=== PATIENT | female | born 1970 | race Caucasian/White ===

== ENCOUNTER 2024-11-02 09:02 | Outpatient (CLI) | payer BC, SELFPAY ==
--- OUTSIDE RECORDS SUMMARY | 2024-11-02 09:08 | XMS_ITS | CCD ---
Author Name Interface, [id number] lity Address [address] [place] [address] Organization [facility] Address [address] [place] [address] Care Team Providers Care Prosthetic Assistant Name Role Phone Tulio Schilling Unavailable Unavailabl e Care Plan Reason for Visit Encounters Functional Status Medications Problems Social History
--- OUTSIDE RECORDS SUMMARY | 2024-11-02 09:08 | XMS_ITS ---
Author Name Interface, [id number] lity Address [address] [place] [address] Organization [facility] Address [address] [place] [address] Care Team Providers Care Produce Manager Name Role Phone Tulio Schilling Allergies and Adverse Reactions Medication/Group Name Reaction Severity Date ondansetron Headache, Nausea 09/11/2022 Dilaudid 09/11/2022 Plan Date Type Value 09/10/2023 APPOINTMENT Lab 09/10/2023 APPOINTMENT INHIBIN A AND B, RTC 1YR F/U 09/10/2023 APPOINTMENT INHIBIN A AND B, RTC 1YR F/U 09/11/2022 APPOINTMENT LAB INHIBIN A&B, RTC 1YR F/U 09/11/2022 APPOINTMENT LAB INHIBIN A&B, RTC 1YR F/U 09/10/2023 LABORDER Inhibin B panel 09/10/2023 LABORDER Inhibin A panel Reason for Visit Lab Encounters Date Name 09/11/2022 Primary malignant ne oplasm of ovary (disorder) Diagnostic Results Date Type Test Units Lower Limit Upper Limit Result Flag Comments Status Ordered By Specimen Source Lab Address 09/11 Inhib in B panel Inhib in B pg/mL <10 REFERENCE RANGE for Inhibin B:------- --------- --------- -----Age: Male: Female:5 - 9.9 years 21 - 166 pg/mL < or = 18 pg/mL10 - 13.9 years 41 - 328 pg/mL < or = 86 pg/mL14 - 17.9 years 54 - 295 pg/mL < or = 123 pg/mL>= 18 years 47 - 308 pg/mLFema le: Pre-menop ausal <153 pg/mLPost -menopaus al <10 pg/mLValu es obtained from different assay methods cannot beused interchan geably. Inhibin B levels, regardles s ofvalue, should not be interpret ed as absolute evidenceo f the presence or absence of disease.T his test was developed and its analytica l performan cecharact eristics have been determine d by [facility] / [facility]. It has not been cleared or approved by theA. This assay has been validated pursuant to the CLIAregul ations and is used for clinical purposes. [employer], [address] [place] [address] [place] [id number] 0 09/11 Inhib in A panel Inhib in A, ultra sensi tive pg/mL 1 Reference Ranges for Inhibin A:Females Premenopa usal: <98.0 pg/mLPost menopausa l: <2.1 pg/mLMale s <2.0 pg/mLThis test was performed using the [employer] Inhibin-A method that has been cleared bythe FDA strictly for in vitro use as an aid in the diagnosis and monitorin g of various hormonal reproduct raeann disorders .The Inhibin-A test should not be used as a diagnosti cprocedur e for granulosa cell tumors or hydatidif orm moleswith out confirmat ion of the diagnosis by another establish edproduct or procedure . Values obtained with different assaymeth ods or kits cannot be used interchan geably. [facility] [employer] [facility], [address] [place] [address] [place] [id number] Medications Date Name Route Dose Frequency Instructions Start Date End Date Status Chlorthalidone Oral active Trazodone Oral 1/2 nightly active 2022 estradiol 2 MG Oral Tablet 023 active 2021 estradiol 2 MG Oral Tablet 022 active 2020 estradiol 2 MG Oral Tablet 021 active 2018 Multivitamins with Iron-Mineral Oral Liquid PO 15.0 ML daily 019 active 2018 Ibuprofen Oral PO 1.0 TABLET (S) Q8H PRN pain 019 active 2010 1 ML lorazepam 2 MG/ML Injection intravenous 1.0 mg As Directed 011 2010 on hold 2010 1 ML lorazepam 2 MG/ML Injection intravenous 1.0 mg As Directed 011 2010 on hold 2010 1 ML lorazepam 2 MG/ML Injection intravenous 1.0 mg As Directed 011 2010 on hold 2010 1 ML lorazepam 2 MG/ML Injection intravenous 1.0 mg As Directed 011 2010 on hold 2010 1 ML lorazepam 2 MG/ML Injection intravenous 1.0 mg As Directed 011 2010 on hold 2010 1 ML lorazepam 2 MG/ML Injection intravenous 1.0 mg As Directed 011 2010 on hold Problems Diagnosis Status Date of Diagnosi s Tobacco user (finding) Active Degeneration of intervertebral disc (disorder) A ctive Cyst of breast (disorder) Active Primary malignant neoplasm of ovary (disorder) A ctive 09/18/2010 Pain of breast (finding) Active Vital Signs Date Type Value 09/11/2022 Body Temperature 97.60 09/11/2022 Heart Beat 74.00 09/11/2022 Respiratory Rate 14.00 09/11/2022 Oxygen Saturation 97.00 09/11/2022 BSA 1.65 09/11/2022 Pain Scale 0.00 09/11/2022 Weight 140.00 09/11/2022 Height 62.50 09/11/2022 BMI 25.20 09/11/2022 Intravascular Systolic 128 09/11/2022 Intravascular Diastolic 86 Notes Section * LEAD RECREATION ASSISTANT Onc Follow Up Note Patient Name:Temi LEE :Temi 1970 Date of Visit:Â 09/11/2022 Referring Provider:Temi Membreno Attending:Temi Schilling (Gynecological/Oncology) Chief Complaint: Follow-up for ovarian cancer History of Present Illness: Rosemary returns to clinic today for follow-up for 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 Â The patient was last seen in our office on 08/29/2021.Â Â Patient has been doing well since her last visit.Â Â She reports havingÂ received definitive therapy for hepatitis C is quite elated. Â She has not had any symptoms associated with her hep C. Â She denies any right upper quadrant abdominal pain or jaundice.Â Rosemary denies any abdominal or pelvic pain. She denies vaginal dryness or dyspareunia. Â Patient has no abdominal bloating, nausea or vomiting. No urinary symptoms. She reports normal appetite. No unexpected change in weight. No other signs or symptoms consistent with recurrence of her ovarian cancer. Past Medical History: * Stage IC granulosa-cell tumor - 09/18/2010.* Adjuvant chemotherapy with carboplatin and Taxol - Last cycle received on 02/27/2011. * Vulvar herpes. Past Surgical History: * Exploratory laparotomy with total hysterectomy, bilateral salpingo oophorectomy, omentectomy and paraaortic and bilateral pelvic lymph node dissection on 09/18/2010. * Cold knife cone - 1990. * Port a cath placement Past Obstetrical and Gynecologic History: No history of sexually transmitted disease. Â Abnormal Pap smears in 1989 (cold knife cone) and 1994 (cryotherapy). Â Last Pap 04/2010 - negative per pt. Patient has had 5 spontaneous vaginal deliveries at term. Â Never had a mammogram or colonoscopy. Family History: Noncontributory.Â Social History: The patient denies any alcohol, tobacco or drug use. Quit smoking in May 2010. 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 Â She is currently working at [employer]. Â She lives withher boyfriend and 2 grandchildren. Â She has 5 children. Review of Systems: 14-system review with patient is unremarkable, except for that mentioned in the History of Present Illness.Â ... Medications: * Multivitamins with Iron-Mineral Oral Liquid Liquid (Ml) 15 ML PO daily * Chlorthalidone Oral 25 mg tablet * Estradiol 2 mg tablet TAKE 1 TABLET BY MOUTH DAILY * Ibuprofen Oral 400 mg tablet 1 TABLET(S) PO Q8H PRN pain * Trazodone Oral 50 mg tablet 1/2 nightly Allergies: * Dilaudid * ondansetron Vital Signs: Blood pressure: 128/86, L arm, Regular, Pulse: 74, Temperature: 97.6 F, Respirations: 14, O2 sat: 97%, At Rest, Room Air, Pain Scale: 0, Height: 62.5 in, Weight: 140 lb, BSA: 1.65, BMI: 25.2 kg/m2 Physical Exam: Constitutional: The patient appears comfortable, in no acute distress. ECOG 0 HEENT: Normocephalic Eyes: Sclerae anicteric Respiratory: No evidence of cough, normal respiratory effort Cardiovascular: No evidence of peripheral edema Musculoskeletal: Gait is normal Skin: No rashes, petechiae or jaundice Neurologic: No focal deficits Psychiatric: Alert and oriented x3 Gynecologic Exam: External genitalia: No lesions appreciated. Urethral meatus: No lesions appreciated, no prolapse. Bladder: No masses, nontender. Vagina: No discharge, nontender. Cervix:Â Surgically absent Uterus: Surgically absent. Adnexa: No masses, nontender. Perineum/anus: No lesions. Laboratory Data: CBC LabResults 08/29/2021 10/12/2018 04/15/2018 04/09/2018 8 10/21/2016 CBC CMP LabResults 08/29/2021 10/12/2018 04/15/2018 04/09/2018 8 10/21/2016 Chemistries Creatinine mg/dL 0.7 GFR non-, estimated mL/min/1.73m2 >60 Pathology: 09/18/2010 Surgical pathology: Â Left ovary - Granulosa cell tumor, measures 9 cm with rupture and hemorrhage. Increased nuclear atypia and mitotic activity. Left tube- No pathology. Uterus and cervix - No pathology. Myometrium - Adenomyosis. Right ovary - Stromal hyperplasia. No evidence of malignancy. Right tube - Few paratubal cysts ranging in size up to 1.2 cm. Omentum - No evidence of malignancy. Left paraaortic dissection - (0/5) negative. Left Pelvic lnd (0/17) - Negative. Imagin04/13/2018-CT of abdomen pelvis-there is no indications of metastatic disease of the abdomen or pelvis. Â Patient does have small 2-3 mm calculi in the lower pole calyces of the left kidney. Â There is no retroperitoneal adenopathy. Â The bladder has symmetric contour. Â No mention of hydronephrosis or hydroureters.Â 10/17/2011 CT abdomen/pelvis - No new disease in abdomen or pelvis. Redemonstrated tiny fluid collection adjacent to the distal left external iliac vessels, possibly lymphocele. 04/10/2011 CT chest, abdomen and pelvis - No new disease. Small cluster of nonspecific 0.5 cm and smaller nodes in the right lateral small bowel mesentery. Slightly smaller fluid collection in the distal left external iliac chain. 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 No new or recurrent disease in the abdomen or pelvis. Thrombosed left parametrial vein. 09/18/2010 CT abdomen and pelvis - Large left adnexal mass measuring 11.0 cm with moderate degree of hemoperitoneum. Assessment & Plan: * Stage IC granulosa cell tumor - No evidence of recurrent disease by today's exam. Â Â Tumor markerspending. Recommend follow up examination and repeat tumor markers in 1 year. The patient will call our office with any new symptoms or concerns.Â * Positive Hepatitis C antibodies -patient has received definitive therapy.Â Â Plan for Pain: (X ) No pain reported ( ) Use of Opioids ( ) Non-opioid analgesics or techniques ( ) Non-pharmacologic interventions (relaxation techniques, use of heat/cold) ( ) Driving prohibitions discussed ( ) Opioid agreement signed ( ) PDMP reviewed ( ) Patient and/or family education ( ) Psychological Support ( ) Radiation treatment ( ) Reassessment of pain at an appropriate time interval ( ) Referral to a pain clinic ( ) Referral to other provider ( ) Urine drug screen order provided and discussed ( ) Other Tulio Schilling MD cc:Â Lakeisha Boyce MD (TV[facility]) Magnus Pacheco MD (LM) Electronically signed by Tulio Schilling MD 09/11/2022 14:53 PDT
--- OUTSIDE RECORDS SUMMARY | 2024-11-02 09:08 | XMS_ITS | Patient Health Record ---
Author Organization [facility] Address [address] [place] [address] Care Team Providers Care Aircraft Cabin Cleaner Name Role Phone Yobany Woods Primary Care Provider [phone] Shruthi Walker [phone] Allergies No Known Allergies Reason For Referral Reason TINNITUS EVALUATION. [facility] MELIS[facility] Diagnosis 1 Tinnitus of both ear s (H93.13) Referral Organization [facility] Referring Provider First Name Yobany Referring Provider Last Name Peggy Referring Provider Speciality Internal M edicine Referred Provider Specialty Audiologists General Notes Referral sent to [facility]. Letter to patient. Clinical Notes [facility], [facility], [place] [address], ph. [phone], fax: [phone] Referral Priority Routine Medications Medication SIG (Take, Route, Fr equency, Duration) Notes Start Date End Date Status Estradiol 2 MG 1 tablet Orally Once a day for 90 days 06/06/2024 Active traZODone HCl 50 MG 1 tablet at bedtime as needed Orally Once a day Active Social History Tobacco Use: Social History Observation Description Date Details (start date - stop date) Current Smoker NA - NA Tobacco Control (Standard) Question Answer Notes Tobacco use: Current every day smoker Additional Findings: Tobacco user e-cigarette Problems Problem Type SNOMED Code ICD Code Onset Dates Problem Status W/U Status Risk Notes Problem Hypertension (86025807) Hypertension (I10) Active confirmed Problem Insomnia (612105715) Insomnia (G47.00) Active confirmed Problem Bilateral tinnitus (3793136831139) Tinnitus of both ears (H93.13) Active confirmed Problem History of malignant neoplasm of ovary (337543419) History of ovarian cancer (Z85.43) Active confirmed Vital Signs Heart Rate 71 /min 06/03/2024 Respiratory Rate 16 /min 06/03/2024 Blood pressure diastolic 98 mm Hg 06/03/2024 Oximetry 98 % 06/03/2024 Height 62 in 06/03/2024 Blood pressure systolic 132 mm Hg 06/03/2024 Weight 143 lbs 06/03/2024 BMI 26.15 kg/m2 06/03/2024 Encounters Encounter Location Date Provider Diagnosis [place] [address] [place] [address] 06/03/2024 Yobany Woods Tinnitus of both ears H93.[address] [place] [address] 12/30/2023 Shruthi Walker Insomnia G47.00 [place] [address] [facility] [place] [address] 05/27/2024 Yobany Woods [address] [place] [address] 06/06/2024 Yobany Woods [address] [place] [address] 06/24/2024 Yobany Woods [place] [address] [place] [address] 12/31/2023 Yobany Woods Insomnia G47.00 Assessments Encounter Date Diagnosis (ICD Code) Assessment Notes Treatment Notes Treatment Clinical Notes Section Notes 06/03/2024 Tinnitus of both ears (ICD-10 - H93.13) DISCUSSED LIKELY DUE TO AGE RELATED HEARING LOSS. AVOID LOUD NOISES. USE WHITE NOISE TO MASK. DISCUSS OTHER OPTIONS AFTER AUDIOLOGY EVALUATION. 12/30/2023 Insomnia (ICD-10 - G47.00) 12/31/2023 Insomnia (ICD-10 - G47.00) Plan Of Treatment No Information Insurance Providers Payer Name Payer Address Payer Phone Subscriber Number Group Number Insured Name Patient Relationship to Insured Coverage Start Date Coverage End Date [facility] [address] [place] [address] [phone] [id number] Rosemary Sena Self - patient is the insured 4 Medical (General) History Surgical History Surgery Date(Month/Year) hysterectomy
--- OUTSIDE RECORDS SUMMARY | 2024-11-02 09:08 | XMS_ITS | Continuity of Care Document ---
Author Organization [facility] Address [address] [facility] [address] [place] [address] Phone Care Team Providers Care Technical Sme Name Role Phone Cristobal Martin MD Unavailable Unavailable Allergies, Adverse Reactions, Alerts Substance Reaction Status Criticality HYDROMORPHONE HCL Active No Informa tion tramadol Active No Information Medications Medication Instructions Dosage Effective Dates (start - stop) Status Comments estradiol 1 mg tablet take 1 tablet by oral route every day 1 MG - Active hydrocodone 5 mg-acetaminophen 325 mg tablet take 1 tablet by oral route every 6 hours as needed for pain 1.00 tablet - Active gabapentin 300 mg capsule take 1 capsule by oral route 3 times every day 300 MG - Active Zyrtec 10 mg capsule - Activ e methocarbamol 750 mg tablet take 1 tablet by oral route every 4 hours 750 MG - Active ibuprofen 200 mg capsule take 1 capsule by oral route every 6 hours as needed 200 MG - Active Procedures Procedure Date Office/outpatient visit,est, mod 2014 Office/outpatient visit,new, Low 2014 Advance Directives Directive Yes / No Effective Date File Name No Information Encounters Encounter Description Practice Location Reason(s) For Visit Diagnoses Date Provider Providers Copied on Encounter [facility], [address], [place], [place], [id number], [place] tel:[phone] [facility] Cervical radiculopathy Aug- 6 Veronica Jain. [address], [place], [place], [id number] , [place]. tel:[phone] Office/outpa tient visit,[facility], [facility], [address], [place], [place], [id number], [place] tel:[phone] [facility] [place] neck pain (chief complaint) Cervical radiculopathy Sep-2 8-201 5 Zoe Wang. [address], [place], [place], [id number] , [place]. [phone] Referring Provider: Rojas ZELAYA, [address], [place], [address] . tel:[phone] Office/outpa tient visit,[facility], [facility], [address], [place], [place], [address], [place] tel:[phone] [facility] [place] neck pain (chief complaint) CervicalgiaCervica l radiculopathy October-0 5-201 5 Walker [place]. [address], [place], [place], [id number] , [place]. tel:[phone] Referring Provider: Candy Aguilera, [address], [place], [address]. tel:[phone] Family History Family Member Type Diagnosis Age At Onset Father Problem (finding) Unknown Mother Problem (finding) Alive and well Problem (finding) Family history of Cance r, unknown Payers Payer name Insurance type Covered green party ID Authoriza tion(s) No Information Social History Type Description Quantity Date Captured Comments Alcohol Use Details No Caffeine Use Details Unknown Tobacco Use Status No Information Smoking Status No Information Sex Female Chief Complaint And Reason For Visit No Information Reason For Referral Reason For Referral No Information Plan Of Treatment Date Type Action Status Future Order: Lab Order CBC w/di ff ([id number]), Ordered on: Ordered Future Order: Lab Order PT/INR ( [id number]), Ordered on: Ordered Future Order: Lab Order PTT ([id number]), O rdered on: Ordered Future Order: Lab Order BMP ([id number]), O rdered on: Ordered Future Order: Lab Order T&S: ABo RH Type (part 2) ([id number]), Ordered on: Ordered Future Order: Lab Order T&S:Anti body Screen (part 1) ([id number]), Ordered on: Ordered History Of Present Illness Encounter Date Complaint History Of Prese nt Illness neck pain CHIEF COMPLAINT: neck pain, left arm pain AREA TO EXAMINE: neck HOW INJURY OCCURED: unknownCURRENT WORK STATUS: yes DATE LAST WORKED: TREATED IN ER: no Studies Reviewed Ext MRI Cervica l Spine performed on 08/14/2014. 1. Disc osteophytes at C4-5 and C6-7 are asymmetric to the left resulting in severe left foraminal narrowing at both levels with concern for impingement of the left C6 and C7 nerve roots. There is also right foraminal narrowing at C5-6 which could impinge the right C6 nerve root.2. 2. No central canal stenosis. neck pain The symptoms beg an 1 year ago. The symptoms are reported as being moderate. The symptoms occur daily. The location is neck and right shoulder. Hilton Haley is a pleasant 44-year-old woman who is here for further evaluation of a 1.5 year history of pain down the left lateral side of the neck and into the trapezius, left posterior arm, and left hand. She denies any pains to the right. She describes a warm sensation to the neck, as well as some numbness and parethesisas into the LUE at times. No known trauma or precipitating events. The pain has been keeping her up at night. She does not sleep in any particular position. She has tried physical therapy with Lakeisha Rios, and has a few appointments left. She has found some relief with manual cervical traction. She also has a history of migrainous headaches which seems to be interrelated to the neck issues. She also participates in a P90X program, which seems to be tolerable. She tried care consultant for one visit, which was very painful afterward, but then provided some mild relief a couple of days afterward. Studies Reviewed Ext MRI Thoraci c Spine performed on 09/06/2014. A 7x8x12 mm low signal nodular focus arising in the ligamentum flavum at the TT2-3 level slightly indents the posterior sac but does not cause spinal canal stenosis. There is no associated enhancement. This likely represents an area of focal fibrous thickening or calcification in the ligamentum flavum. No evidence of local inflammation. Mild multilevel mid to lower thoracic degenerative disc and facet arthropathy. No evidence of neural impingmenent. Functional Status Date Functional Assessmen t No Information Instructions Date Instruction Additional Infor taran Please Contact [facility] for surgery information - [phone] Related to Cervical radiculopathy Assessments Type Assessment Date assessment Cervical radiculopathy 16 Patient Care Teams Name Effective Dates (start - stop) Status Members No Information
== END 2024-11-02 09:03 | disposition home or self-care (01) ==
LOC: ANHAUDIO 09:03
PROVIDERS: PCP Internal Medicine; Visit Provider Internal Medicine
DX: H93.13 Tinnitus, bilateral (principal); H90.3 Sensorineural hearing loss, bilateral; H93.8X3 Other specified disorders of ear, bilateral; R42 Dizziness and giddiness
CPT/HCPCS: 92557; 92567